=== PATIENT | male | born 1960 | race Caucasian/White ===

== ENCOUNTER 2024-12-03 07:03 | Day surgery (SDC) | payer MEDICARE, SELFPAY ==
--- OUTSIDE RECORDS SUMMARY | 2024-11-06 14:17 | XMS_ITS ---
Author Organization [facility] Address [address] [place] [address] Care Team Providers Care Audio Visual Coordinator Name Role Phone Brenden MONTENEGRO, Marcos Primary Care Provider Odell Sierra Jr Unavailable REASON FOR VISIT NEW INSURANCE Encounters Encounter Location Date Provider Diagnosis [facility] [address] [place] [address] 08/15/2024 Odell Negron Jr PLAN OF TREATMENT Next Appt Details Provider Name:Odell godinez Jr, 12/03/2024 08:20:00 AM, [address] [place] [address] , [place], [place], [phone],
--- OUTSIDE RECORDS SUMMARY | 2024-11-06 14:17 | XMS_ITS | Patient Health Record ---
Author Organization [facility] Address [address] [place] [address] Care Team Providers Care Emergency Services Director Name Role Phone Brenden MONTENEGRO, Marcos Primary Care Provider Odell Sierra Jr Unavailable ALLERGIES No Known Allergies REASON FOR REFERRAL No Information MEDICATIONS Medication SIG (Take, Route, Frequency, Duration) Notes Start Date End Date Status Suprep Bowel Prep 1 kit as directed Oral ly as directed for 1 dose 10/07/2024 Active Contrave 8-90 MG 1 tablet in the morning Orally Once a day Active amLODIPine Besylate 2.5 MG 1 tablet Oral ly Once a day Active Losartan Potassium-HCTZ 100- 25 MG 1 tablet Orally Once a day Active metFORMIN HCl 850 MG 1 tablet with a tyler l Orally twice a day Active hydroCHLOROthiazide 12.5 MG 1 capsule in the morning Orally Once a day for 30 day(s) 10/07/2024 Active IMMUNIZATIONS Vaccine Route Administration Date Status Comme nts Influenza Unknown 07/02/2024 Administered SOCIAL HISTORY Tobacco Use: Social History Observation Description Date Details (start date - stop date) Never Smoker NA - NA Sex Assigned At : Social History Observation Description Sex Assigned At Unknown Tobacco Use/Smoking Question Answer Notes Patient is a nonsmoker Alcohol Screen Question Answer Notes Did you have a drink containing alcohol in the p ast year? No Points 0 Interpretation Negative PROBLEMS Problem Type ICD Code Onset Dates Problem Status W/U Status Risk SNOMED Code Notes Problem Colon cancer screening (Z12.11) Active confirmed 963937326 Problem detention (current) use of oral hypoglycemic drugs (Z79.84) Active confirmed 282300173269953 Problem detention current use of diuretic (Z79.899) Active confirmed 29674599655955186 VITAL SIGNS Temperature 97.8 degrees Fahrenheit 10/07/2024 Blood pressure diastolic 001 mm Hg 10/07/2024 Height 75 in 10/07/2024 Blood pressure systolic 001 mm Hg 10/07/2024 Weight 229 lbs 10/07/2024 BMI 28.62 kg/m2 10/07/2024 Encounters Encounter Location Date Provider Diagnosis [facility] [address] [place] [id number] 10/07/2024 Odell Negron Jr Colon cancer screening Z12.11 ; 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 Z79.84 and 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 Z79.899 [facility] [address] [place] [id number] 08/15/2024 Odell Negron Jr ASSESSMENTS Encounter Date Diagnosis Assessment Notes Treatment Notes Treatment Clinical Notes 10/07/2024 Colon cancer screening (ICD-10 - Z12.11) 10/07/2024 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 (ICD-10 - Z79.84) Colonoscopy discharge material was printed 10/07/2024 detention current use of diuretic (ICD-10 - Z79.899) PLAN OF TREATMENT Future Test Test Name Order Date COLONOSCOPY 10/07/2024 Next Appt Details Provider Name:Odell godinez Jr, 12/03/2024 08:20:00 AM, [address] [place] [address] , [place], [place], [phone], Insurance Providers Payer Name Payer Address Payer Phone Subscriber Number Group Number Insured Name Patient Relationship to Insured Coverage Start Date Coverage End Date [facility] [address] [place], [place] [id number] GINA ONEAL Self - patient is the insured MEDICAL (GENERAL) HISTORY Medical History History ICD Code Diabetes mellitus Hypertension Colonoscopy 10/31 5 year followup for per lindsey history of polyps Hyperlipidemia Surgical History Surgery Date(Month/Year) Perforated appendicitis/dive rticulitis, colostomy and takedown/reanastomosis 1989 Hospitalization History Reason Date(Month/Year) foot infection
--- OUTSIDE RECORDS SUMMARY | 2024-11-06 14:17 | XMS_ITS ---
Author Organization [facility] Address [address] [place] [address] Care Team Providers Care Referral Specialist Name Role Phone Brenden MONTENEGRO, Marcos Primary Care Provider Odell Sierra Jr Unavailable ALLERGIES No Known Allergies REASON FOR VISIT Patient presents today for an office consultation MEDICATIONS Medication SIG (Take, Route, Frequency, Duration) Notes Start Date End Date Status Suprep Bowel Prep 1 kit as directed Oral ly as directed for 1 dose 10/07/2024 Active Contrave 8-90 MG 1 tablet in the morning Orally Once a day Active amLODIPine Besylate 2.5 MG 1 tablet Oral ly Once a day Active metFORMIN HCl 850 MG 1 tablet with a tyler l Orally twice a day Active hydroCHLOROthiazide 12.5 MG 1 capsule in the morning Orally Once a day for 30 day(s) 10/07/2024 Active Losartan Potassium-HCTZ 100- 25 MG 1 tablet Orally Once a day Active SOCIAL HISTORY Tobacco Use: Social History Observation [...] Problem Colon cancer screening (Z12.11) Active confirmed 616605134 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.899) Active confirmed [id number] Problem [facility] (current) use of oral hypoglycemic drugs (Z79.84) Active confirmed 032032402172018 VITAL SIGNS Temperature 97.8 degrees Fahrenheit 10/07/19 25 Blood pressure systolic 001 mm Hg 10/07/19 25 Blood pressure diastolic 001 mm Hg 025 Height 75 in 10/07/2024 Weight 229 lbs 10/07/2024 BMI 28.62 kg/m2 10/07/2024 Encounters Encounter Location Date Provider Diagnosis [facility] [address] [place] [address] 10/07/2024 Odell Negron Jr Colon cancer screening Z12.11 ; intermodal truck driver (current) use of oral hypoglycemic drugs Z79.84 and [facility] current use of diuretic Z79.899 ASSESSMENTS Encounter Date Diagnosis Assessment Notes Treatment Notes Treatment Clinical Notes 10/07/2024 Colon cancer screening (ICD-10 - Z12.11) 10/07/2024 [facility] (current) use of oral hypoglycemic drugs (ICD-10 - Z79.84) Colonoscopy discharge material was printed 10/07/2024 [facility] current use of diuretic (ICD-10 - Z79.899) PLAN OF TREATMENT Medication Medication Name Sig Start Date Stop Date Notes Suprep Bowel Prep 1 kit as directed Oral ly as directed for 1 dose 10/07/2024 Treatment Notes Assessment Notes [facility] (current) use of o ral hypoglycemic drugs Colonoscopy discharge material was print ed Future Test Test Name Order Date COLONOSCOPY 10/07/2024 Next Appt Details Follow Up: 1 Year, Reason: Provider Name:Odell godinez Jr, 12/03/2024 08:20:00 AM, [address] [place] [address] , [place], [place], [phone], Progress Notes * Examination Category Sub-Category Detail Notes General Examination GENERAL APPEARANCE: in no ac alessandro distress HEAD: normocephalic EYES: sclera non-icteric NECK/THYROID: no lymphadenopathy HEART: S1, S2 normal, no mu rmurs CHEST: normal shape and exp ansion LUNGS: clear to auscultatio n bilaterally ABDOMEN: soft, nontender, non distended, bowel sounds present, no organomegaly SKIN: anicteric EXTREMITIES: no clubbing, cyanosi s, or edema PSYCH: cognitive function i ntact ORAL CAVITY: mucosa moist
[2024-11-29 10:25] VITALS: BMI 28.6
[2024-12-03 07:13] VITALS: BP 157/98; PULSE 84; RESP 18; TEMP 36.4; O2SAT 98; BMI 28.4
[2024-12-03] MEDS: Lactated Ringers 1,000 ML 80 ML IVCONT (07:32)
[2024-12-03 07:34] LABS: Glucose, Whole Blood 166 mg/dL (60-115)
--- NOTE | 2024-12-03 07:37 | P.CONAN_ITS ---
HPI - Anesthesia Eval Consult details Narrative: 64 yo male patient for Colonoscopy [facility] Past Medical History Medical History Hx of infection HLD (hyperlipidemia) HTN (hypertension) Diabetes mellitus Family History Family history of problems with anesthesia: No Surgical History Surgical History Hx of appendectomy History of colon surgery Hx of colonoscopy History of Problems with Anesthesia: No Social History Social History Patient Tobacco Use Status: Never used Tobacco Second Hand Smoke Exposure: No Use of substances other than those prescribed or required for medical reasons: No Are you DNR?: No Advance Directives: No Advance Directives Information Provided: Yes Advance Directives on File: No Meds Allergies Allergy/AdvReac Type Severity Reaction Status Date / Time No Known Allergies Allergy Verified 11/29/24 10:27 Active Medications: Current Medications Lactated Ringer's (Lr) 1,000 mls @ 80 mls/hr IVCONT .[id number] KEITH Last Admin: 12/03/24 07:32 Dose: 80 mls/hr Home Medications ?Medication ?Instructions ?Recorded ?Confirmed ?Last Taken ?Type amlodipine 10 mg tablet 10 mg PO DAILY 11/29/24 11/29/24 12/02/24 History atorvastatin 10 mg tablet 10 mg PO DAILY 11/29/24 11/29/24 12/02/24 History cyclobenzaprine 10 mg tablet 10 mg PO 3XD 11/29/24 12/03/24 11/30/24 History hydrochlorothiazide 25 mg tablet 25 mg PO DAILY 11/29/24 12/03/24 12/02/24 History losartan 100 mg tablet 100 mg PO DAILY 11/29/24 11/29/24 12/02/24 History metformin 850 mg tablet 850 mg PO BID 11/29/24 11/29/24 12/02/24 History sodium,potassium,mag sulfates 17.5 PO DIRECTED 11/29/24 Unknown History gram-3.13 gram-1.6 gram oral soln Exam Height,Weight and Vital Signs: Height 6 ft 3 in Weight 103.2 kg Last Vital Signs Temp 97.5 F 12/03/24 07:13 Pulse 84 12/03/24 07:13 Resp 18 12/03/24 07:13 BP 157/98 H 12/03/24 07:13 Pulse Ox 98 12/03/24 07:13 O2 Del Method Room Air 12/03/24 07:13 Pertinent Lab Results Pertinent Lab Results: Laboratory Tests 12/03/24 07:30 POC Glucose 166 H Airway Mallampati Class: III TM Dist: >3cm Neck ROM: Full Loose/Missing/Broken Teeth: No (Denies broken, loose, missing teeth) Heart: RRR Lungs: CTAB Assessment and Plan Assessment Anesthesia Assessment: Anesthesia Plan Discussed and Chart Reviewed Final Anesthetic Review Family History of Problems with Anesthesia: No History of Problems with Anesthesia: No NPO: Yes ASA Class: II Final Preanesthetic Review: No Changes in Pt Med Stat, Meds/Allgs Chart Reviewed, Consent Obtained/Reviewed and Anes Risks/Benef Reviewed Patient Risk: Low Procedure Risk: Low Assessment/Block/Sedation in SS: Assess/Block/Sedation-SS Anesthetic Plan Anesthetic Plan: TIVA Disposition: Standard PACU
--- NOTE | 2024-12-03 08:27 | MHC.SHP ---
Pre-Procedural Eval Section A - 24 Hr Update-Section A only Date of Service: 12/03/24 Section B - Complete if H&P > 30 days Chief Complaint: screening Details of Present Illness: see H*P no changes Relevant Family History (Specify if Yes): No Relevant Social History: None Present Medications: see Short Stay Collaborative assessment Medical History: No relevant PMH History of Previous Operations: No relevant previous surgery Allergies: Allergies Allergy/AdvReac Type Severity Reaction Status Date / Time No Known Allergies Allergy Verified 11/29/24 10:27 Review of Systems Sugical H&P ROS: Negative: Constitution, Cardiovascular, Respiratory, Neurological, Psychiatric, Hem-Onc, Allergic/Immunologic, Gastrointestinal, Genitourinary, Musculoskeletal, Integumentary, Endocrine and Eyes/Ears/Nose/Throat Exam Surgical H&P Exam: Normal: HEENT, Normal: Heart, Normal: Lungs, Normal: Extremities, Normal: Abdomen, Normal: Skin and Normal: Neurological Plan Diagnosis/Plan: Unchanged I have reviewed the history and physical and performed a pertinent physical examination on my patient. No changes have occurred unless specified. Time Spent With Patient Time: Total time managing care of this patient today ____ minutes.
[2024-12-03 09:03] VITALS: BP 108/68; PULSE 71; RESP 18; TEMP 36.2; O2SAT 96
--- NOTE | 2024-12-03 09:07 | P.BOP_ITS ---
Brief Operative Note Date of Service: 12/03/24 Pre-op diagnosis: screening Post-op diagnosis: same Procedure: colonoscopy Surgeon: Odell Negron MD Anesthesia: MAC Was an Dehydrogenation Supervisor used for this Procedure?: No Estimated blood loss (mL): 5 Pathology: other Condition: stable Disposition: PACU
[2024-12-03 09:19] VITALS: BP 121/72; PULSE 72; RESP 18; TEMP 36.1; O2SAT 96
--- NOTE | 2024-12-03 11:17 | OP_ITS ---
DATE OF SERVICE: 12/03/2024 SURGEON: Oedll Negron MD INDICATIONS: Colon cancer screening. PREOPERATIVE DIAGNOSIS: POSTOPERATIVE DIAGNOSIS: PROCEDURE PERFORMED: Colonoscopy to the cecum with snare polypectomy. ESTIMATED BLOOD LOSS: COMPLICATIONS: ANESTHESIA: Monitored anesthesia care. ASSISTANTS: SPECIMENS: DESCRIPTION OF PROCEDURE: History and physical performed. The risks and benefits of the procedure were explained to the patient. Informed consent was obtained. The patient was placed in the left lateral decubitus position. A digital rectal exam was performed and was found to be normal. The Olympus pediatric video colonoscope was introduced into the rectum and advanced to the cecum. The cecum was identified by transillumination, palpation, and identification of ileocecal valve. Examination was performed and the scope was removed. He tolerated the procedure well and was taken to recovery area in stable condition. FINDINGS: The terminal ileum was not examined. The visualized colonic mucosa was within normal limits without evidence of masses or ulcers. There were some liquids and retained solid stool limiting the sensitivity examination for detection of small polyps this was washed and suctioned as best possible. A single polyp measuring approximately 8 to 10 mm was identified at 35 cm and removed with a hot snare. The polyp was recovered via suction. No other polyps were identified. There was mild sigmoid diverticulosis. Retroflexed examination was normal. IMPRESSION: Colon polyp. RECOMMENDATION: Follow up the biopsy results. MD BENITEZ Priest/VERA / [id number]
== END 2024-12-03 10:04 | disposition home or self-care (01) ==
PROVIDERS: PCP Internal Medicine; Visit Provider Internal Medicine Gastroenterology
PROC: 0DJD8ZZ Inspection of Lower Intestinal Tract, Via Natural or Artificial Opening Endoscopic (ICD-10-PCS; CPT 45378; principal; 2024-12-03 08:20)
DX: Z12.11 Encounter for screening for malignant neoplasm of colon (principal); Z86.0101 Personal history of adenomatous and serrated colon polyps; D12.5 Benign neoplasm of sigmoid colon; K57.30 Diverticulosis of large intestine without perforation or abscess without bleeding; Z87.19 Personal history of other diseases of the digestive system; Z98.0 Intestinal bypass and anastomosis status; I10 Essential (primary) hypertension; E11.9 Type 2 diabetes mellitus without complications; E78.5 Hyperlipidemia, unspecified; Z79.84 Long term (current) use of oral hypoglycemic drugs; Z79.899 Other long term (current) drug therapy; Z98.890 Other specified postprocedural states
CPT/HCPCS: 45385; 82947; 88305; J2003; J2704